=== PATIENT | female | born 1985 | race Caucasian/White ===

== ENCOUNTER 2020-11-15 17:34 | Emergency (ER) | payer OTHER ==
[~2020-11-15] VITALS: Ht 157.5 cm; Wt 78.0 kg
[2020-11-15] MEDS ORDERED: ADDERALL 20 MG20 M1 PO (17:46)
[2020-11-15 18:01] LABS: HEMATOCRIT 37.6 % (37.0-47.0); HEMOGLOBIN 12.4 gm/dL (12.0-15.0); MCH 27.9 pg (26.0-34.0); MCV 84.6 fL (80.0-100.0); MPV 7.6 fl. (7.2-11.1); RBC 4.44 mil/uL (4.20-5.00); RDW-CV 12.9 % (10.5-14.5); WBC 10.4 thou/uL (4.0-11.0)
[2020-11-15 18:09] LABS: CALCIUM 9.1 mg/dL (8.5-10.1); CREATININE 1.1 mg/dL (0.6-1.3)
[2020-11-15 18:14] LABS: ALBUMIN 3.4 g/dL (3.4-5.0); TOTAL BILIRUBIN 0.3 mg/dL (<0.1-1.0); TOTAL PROTEIN 7.5 g/dL (6.4-8.2)
[2020-11-15 19:03] LABS: ALBUMIN 3.3 g/dL (3.4-5.0); ALKALINE PHOSPHATASE 85 U/L (46-116); DIRECT BILIRUBIN < 0.1 mg/dL (<0.1-0.3); LIPASE 162 U/L (73-393); SGOT 19 U/L (15-37); SGPT 12 U/L (30-65); TOTAL BILIRUBIN 0.2 mg/dL (<0.1-1.0); TOTAL PROTEIN 7.5 g/dL (6.4-8.2)
[2020-11-15 20:35] VITALS: BP 106/65
--- NOTE | 2020-11-16 10:05 | EKG ---
[place] [address] ELECTROCARDIOGRAM REPORT Name: GREGORYCHI Room: [facility]#: [id number] Admission: 11/15/20 Attend Phys: Discharge: 11/15/20 Date of : 89 Date of Service: 11/15/20 1739 Report #: [id number] THIS REPORT FOR: //name// [facility] ED Test Date: 2020-11-15 Test Time: 17:39:48 Pat Name: CHI GREGORY Department: Room: Gender: St[employer]: [facility] : 1985 Requested By: Zeus Mclaughlin Order Number: [id number] MD: Christopher Alcantara Measurements Intervals [place] Rate: 74 P: 52 WI: 136 QRS: 51 QRSD: 100 T: 34 QT: 424 QTc: 471 Interpretive Statements Sinus rhythm Borderline prolonged QT interval Baseline wander in lead(s) V2 No previous ECG available for comparison Electronically Signed On 11-16-2020 10:05:33 CDT by Christopher Alcantara [email or web address] <ELECTRONICALLY SIGNED> By: Christopher Alcantara MD, [facility] 11/16/20 1005 1739 1739 Christopher Alcantara MD, [facility] /EPI
== END 2020-11-15 20:37 | disposition home or self-care (01) ==
LOC: M.ERS 17:34
PROVIDERS: Emergency Medicine
DX: R07.89 Other chest pain (principal)